=== PATIENT | female | born 1975 | race Caucasian/White ===

== ENCOUNTER 2019-03-19 19:17 | Emergency (ER) | payer SELFPAY ==
[2019-03-19] MEDS ORDERED: OXYCODONE-ACETAMINOPHEN 5-325 MG TABLET PO ONE (20:14)
--- NOTE | 2019-03-19 20:18 | ER Document Report ---
HPI - HPI Patient complains to provider of: Right ankle fracture Onset: Yesterday Onset/Duration: Sudden Quality of pain: Sharp Pain Level: 3 Context: Patient flew to [place] yesterday and was attempting to get her rental car and tripped falling fracturing her ankle. Patient was seen at a hospital in [place] and a posterior splint had been placed. Patient was advised that she would need surgery and patient made the decision to fly back as she lives in [place]. Patient flew back to [place] here today. Patient states that she has 3 fractures in her ankle. Patient denies any new injuries. Associated Symptoms: Other - Right ankle pain. denies: Vomiting Exacerbated by: Movement, Walking Relieved by: Denies Similar symptoms previously: No Recently seen / treated by doctor: Yes - ROS ROS below otherwise negative: Yes Systems Reviewed and Negative: Yes All other systems reviewed and negative - CONSTITUTIONAL Constitutional: DENIES: Fever - NEURO Neurology: DENIES: Weakness - GASTROINTESTINAL Gastrointestinal: DENIES: Nausea, Patient vomiting - REPRODUCTIVE Reproductive: DENIES: : - MUSCULOSKELETAL Musculoskeletal: REPORTS: Extremity pain, Swelling - DERM Skin Color: Ecchymosis Skin Problems: Blister <ENID SHI - Last Filed: 03/19/19 21:01> <MICHELE KATHLEEN - Last Filed: 03/19/19 21:49> - HPI Time Seen by Provider: 03/19/19 20:03 Past Medical History - General Information source: Patient - Social History Smoking Status: Never Smoker Frequency of alcohol use: Occasional Drug Abuse: None Occupation: None Family History: Reviewed & Not Pertinent - Medical History Medical History: Negative Surgical Hx: Negative <ENID SHI - Last Filed: 03/19/19 21:01> Vertical Provider Document - CONSTITUTIONAL Agree With Documented VS: Yes Exam Limitations: No Limitations General Appearance: WD/WN, No Apparent Distress - INFECTION CONTROL TRAVEL OUTSIDE OF THE [place]S. IN LAST 30 DAYS: No - HEENT HEENT: Atraumatic, Normocephalic - NECK Neck: Normal Inspection - RESPIRATORY Respiratory: No Respiratory Distress - CARDIOVASCULAR Pulses: Normal: Dorsalis pedis - MUSCULOSKELETAL/EXTREMETIES Musculoskeletal/Extremeties: Tender - Right foot and ankle tenderness with 3+ edema, patient with 2 large bulla to medial aspect of distal right lower leg and right foot, Edema, Eccymosis - NEURO Level of Consciousness: Awake, Alert, Appropriate Motor/Sensory: No Motor Deficit - DERM Integumentary: Warm, Dry <ENID SHI - Last Filed: 03/19/19 21:01> Course - Re-evaluation Re-evalutation: 03/19/19 20:[address] Venkata Vega regarding pt presentation, reviewed x rays. Patient appears to have by bimalleolar fracture on x-ray although the possibility of a trimalleolar fracture is in the differential. 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 It is recommended that patient will likely need surgical repair and we are approaching a holiday weekend with no orthopedic follow-up tomorrow either. Recommends transfer to another facility for definitive management. 03/19/19 20:55 Call placed to transfer center at [facility] 03/19/19 21:01 report and handoff given to Jaye RIVERA - Vital Signs Vital signs: Temp Pulse Resp BP Pulse Ox 98.6 F 88 20 124/79 96 03/19/19 19:22 03/19/19 19:22 03/19/19 19:22 03/19/19 19:22 03/19/19 19:22 - Diagnostic Test Radiology reviewed: Pending, Image reviewed <ENID SHI - Last Filed: 03/19/19 21:01> - Re-evaluation Re-evalutation: 03/19/19 21:45 Ankle XR: Comminuted mildly displaced fracture involving the distal fibula with additional transversely oriented fracture involving the medial malleolus I did speak with Dr. Solis, [facility], [place], who states that they will not perform surgery with fracture blisters present until they have resolved which may take a week. He would like a big bulky dressing provided with a posterior ankle as well as a stirrup splint. He would like Xeroform over the fracture blisters. She is to remain nonweightbearing and to call their office on Friday to schedule an appointment. Patient is in agreement with this plan. - Vital Signs Vital signs: Temp Pulse Resp BP Pulse Ox 98.6 F 88 20 124/79 96 03/19/19 19:22 03/19/19 19:22 03/19/19 19:22 03/19/19 19:22 03/19/19 19:22 <MICHELE KATHLEEN - Last Filed: 03/19/19 21:49> Procedures - Immobilization Right Ankle Pre-Proc Neuro Vasc Exam: Normal Immobilizer type: Sugar tong, Short Leg Posterior Performed by: PCT Post-Proc Neuro Vasc Exam: Normal, Unchanged from pre-exam <MICHELE KATHLEEN - Last Filed: 03/19/19 21:49> Discharge <ENID SHI - Last Filed: 03/19/19 21:01> <MICHELE KATHLEEN - Last Filed: 03/19/19 21:49> - Discharge Clinical Impression: Closed right ankle fracture Qualifiers: Encounter type: initial encounter Qualified Code(s): S82.891A - Other fracture of right lower leg, initial encounter for closed fracture Condition: Stable Disposition: HOME, SELF-CARE Additional Instructions: Rest, Ice, Compression, Elevation Use crutches/splint as directed Tylenol/ibuprofen as needed F/u with your PCP in 3-5 days for a recheck if needed Call orthopedics Friday to schedule an appointment for further evaluation and management Return to the ED with any worsening symptoms and/or development of fever, headache, chest pain, palpitations, syncope, shortness of breath, trouble breathing, abdominal pain, n/v/d, muscle weakness/paralysis, numbness/tingling, swelling, redness, or other worsening symptoms that are concerning to you. Prescriptions: Hydrocodone/Acetaminophen [[place] 5-325 mg Tablet] 1 tab PO BID PRN #10 tablet PRN Reason: Bismuth Tribromoph/Petrolatum [Xeroform 5"X9" Gauze Strip] 1 bandage TP ASDIR PRN #6 pkg PRN Reason: Referrals: GABRIELA SOLIS MD [NO LOCAL MD] - Follow up in 1 week
--- NOTE | 2019-03-19 21:19 | RADIOLOGY REPORT (SQ) ---
EXAM DESCRIPTION: Right foot RadLex: XR FOOT 3 OR MORE VIEWS Views: 3 CLINICAL HISTORY: 43 years Female, fall, r ankle/foot injury COMPARISON: None. FINDINGS: Fractures of the distal tibia and fibula are noted; see ankle report. Tarsals, metatarsals, and phalanges are intact. Small plantar and Achilles calcaneal spurs are noted. IMPRESSION: 1. Fractures of distal tibia and fibula; see ankle report 2. No foot fractures.
--- NOTE | 2019-03-19 21:23 | RADIOLOGY REPORT (SQ) ---
EXAM DESCRIPTION: XR ANKLE 3 OR MORE VIEWS COMPLETED DATE/TME: 03/19/2019 20:14 CLINICAL HISTORY: 43 years, Female, fall, r ankle/foot injury COMPARISON: None. NUMBER OF VIEWS: Three TECHNIQUE: Frontal, oblique, and lateral radiograph of the right ankle were obtained LIMITATIONS: None. FINDINGS: Visualized is a comminuted fracture involving the distal fibular diaphysis with slight posterior displacement of the distal fracture fragment. A superimposed transversely oriented fracture of the medial malleolus is also evident. Associated overlying soft tissue swelling is noted about the medial and lateral aspects of the ankle. Small posterior calcaneal spur is evident. A geographic appearing lucent lesion is noted about the anterior aspect of the calcaneus which demonstrates a narrow zone of transition, most likely benign. IMPRESSION: Comminuted, mildly displaced fracture involving the distal fibula. Additional transversely oriented fracture involving the medial malleolus. Geographic appearing lucent lesion within the anterior aspect of the calcaneus with narrow zone of transition, most likely benign. Consider follow-up radiographs in three months to document stability. copyright 2010 [employer]- All Rights Reserved
--- NOTE | 2019-03-19 21:25 | RADIOLOGY REPORT (SQ) ---
EXAM DESCRIPTION: XR RIGHT TIBIA FIBULA 2 VIEWS COMPLETED DATE/TME: 03/19/2019 20:26 CLINICAL HISTORY: 43 years, Female, RLE pain, ankle fx COMPARISON: None. NUMBER OF VIEWS: TECHNIQUE: LIMITATIONS: None. FINDINGS: There is comminuted fracture of the distal fibula. There is possible fracture of the posterior malleolus. Mineralization of bone appears normal. IMPRESSION: Fracture of the distal fibula. Possible fracture of the posterior malleolus. Ankle x-rays are pending. copyright 2010 [employer]- All Rights Reserved
[2019-03-19 23:00] VITALS: BP 104/55
== END 2019-03-19 22:59 | disposition home or self-care (01) ==
LOC: ER 19:17
DX: S82.891A Other fracture of right lower leg, initial encounter for closed fracture (principal); W01.0XXA Fall on same level from slipping, tripping and stumbling without subsequent striking against object, initial encounter
CPT/HCPCS: 99283

== ENCOUNTER 2020-02-09 10:42 | Emergency (ER) | payer SELFPAY ==
[2020-02-09] MEDS ORDERED: NORMAL SALINE 1000 ML 1,000 ML IV ONE (10:54)
--- NOTE | 2020-02-09 10:59 | ER Document Report ---
ED Medical Screen (RME) - General Chief Complaint: Abnormal Lab Results Stated Complaint: ABNORMAL LABS/URINARY PROBLEM Time Seen by Provider: 02/09/20 10:50 Mode of Arrival: Ambulatory Information source: Patient Notes: The patient was sent here from an urgent care after being rechecked after a yeast infection. Patient states that her blood sugar was elevated over 300 and she was told that she may be septic. Patient does complain of increased thirst, urination and polyphasia. Patient denies any history of diabetes. Patient complains only of yeast infection at this time. I have greeted and performed a rapid initial assessment of this patient. A comprehensive ED assessment and evaluation of the patient, analysis of test results and completion of the medical decision making process will be conducted by additional ED providers. TRAVEL OUTSIDE OF THE U.S. IN LAST 30 DAYS: No - Related Data Allergies/Adverse Reactions: Penicillins Allergy (Verified 02/09/20 10:50) Past Medical History - Social History Chew tobacco use (# tins/day): No Frequency of alcohol use: Occasional Drug Abuse: None Physical Exam - Vital signs Vitals: Temp Pulse Resp BP Pulse Ox 98.4 F 91 20 135/92 H 100 02/09/20 10:46 02/09/20 10:46 02/09/20 10:46 02/09/20 10:46 02/09/20 10:46 - General General appearance: Appears well, Alert In distress: None - Cardiovascular Rhythm: Regular Heart sounds: S1 appreciated, S2 appreciated Course - Vital Signs Vital signs: Temp Pulse Resp BP Pulse Ox 98.6 F 91 20 135/92 H 100 02/09/20 10:51 02/09/20 10:46 02/09/20 10:46 02/09/20 10:46 02/09/20 10:46
[2020-02-09 11:36] LABS: APPEARANCE,URINE CLEAR; BILIRUBIN,URINE NEGATIVE (NEGATIVE); COLOR,URINE YELLOW; GLUCOSE, URINE >=500 mg/dL (NEGATIVE); KETONES,URINE NEGATIVE (NEGATIVE); LEUKOCYTE ESTERASE,URINE NEGATIVE (NEGATIVE); NITRITE,URINE NEGATIVE (NEGATIVE); PROTEIN,URINE NEGATIVE (NEGATIVE); URINE SPECIFIC GRAVITY 1.033; UROBILINOGEN,URINE NEGATIVE mg/dL (<2.0)
[2020-02-09 11:38] LABS: ABSOLUTE BASOPHILS # (AUTO) 0.1 10^3/uL (0.0-0.2); ABSOLUTE EOSINOPHILS # (AUTO) 0.2 10^3/uL (0.0-0.6); ABSOLUTE LYMPHOCYTES (AUTO) 2.5 10^3/uL (0.5-4.7); ABSOLUTE MONOCYTES (AUTO) 0.5 10^3/uL (0.1-1.4); BASOPHILS % (AUTO) 0.6 % (0-2); EOSINOPHILS % (AUTO) 1.9 % (0-6); HEMATOCRIT 43.3 % (36.0-47.0); HEMOGLOBIN 14.6 g/dL (12.0-15.5); LYMPHOCYTES % (AUTO) 27.1 % (13-45); MEAN CORPUSCULAR HEMOGLOBIN 29.4 pg (27.0-33.4); MEAN CORPUSCULAR HGB CONC 33.8 g/dL (32.0-36.0); MEAN CORPUSCULAR VOLUME 87 fl (80-97); MONOCYTES % (AUTO) 5.9 % (3-13); PLATELET COUNT 278 10^3/uL (150-450); RED BLOOD COUNT 4.98 10^6/uL (3.72-5.28); RED CELL DISTRIBUTION WIDTH 13.4 % (11.5-14.0); SEGMENTED NEUTROPHILS % (AUTO) 64.5 % (42-78); TOTAL CELLS COUNTED % (AUTO) 100 %; WHITE BLOOD COUNT 9.4 10^3/uL (4.0-10.5)
[2020-02-09 11:55] LABS: ALBUMIN 4.1 g/dL (3.5-5.0); ALKALINE PHOSPHATASE 137 U/L (38-126); ANION GAP 7 (5-19); ASPARTATE AMINO TRANSFERASE 34 U/L (14-36); BILIRUBIN,TOTAL 0.4 mg/dL (0.2-1.3); BLOOD UREA NITROGEN 11 mg/dL (7-20); CALCIUM 9.3 mg/dL (8.4-10.2); CARBON DIOXIDE 31 mmol/L (22-30); CHLORIDE 96 mmol/L (98-107); GLUCOSE 324 mg/dL (75-110); POTASSIUM 4.3 mmol/L (3.6-5.0); TOTAL PROTEIN 7.4 g/dL (6.3-8.2)
--- NOTE | 2020-02-09 13:50 | ER Document Report ---
ED General - General Chief Complaint: Abnormal Lab Results Stated Complaint: ABNORMAL LABS/URINARY PROBLEM Time Seen by Provider: 02/09/20 10:50 Primary Care Provider: [facility] [Provider Group] - Follow up as needed [facility] [Provider Group] - Follow up as needed SCOTTIE RED MD [COMMUNITY BASED STAFF] - Follow up as needed Mode of Arrival: Ambulatory Information source: Patient Notes: Patient is a 44-year-old female presenting to the emergency department from the urgent care with concerns for elevated blood glucose. Patient denies any history of diabetes. She denies any known family history of diabetes. She states she has been dealing with a vaginal yeast infection for the last month which is why she went to the urgent care today. She states that they told her her glucose was elevated and they were concerned that she may be septic. Patient denies any fevers, chills, nausea, vomiting or diarrhea. She does report excessive thirst and excessive urination lately. TRAVEL OUTSIDE OF THE [place] IN LAST 30 DAYS: No - Related Data Allergies/Adverse Reactions: Penicillins Allergy (Verified 02/09/20 10:50) Past Medical History - General Information source: Patient - Social History Smoking Status: Former Smoker Chew tobacco use (# tins/day): No Frequency of alcohol use: Occasional Drug Abuse: None Family History: Reviewed & Not Pertinent Patient has homicidal ideation: No GI Medical History: Reports: Hx Gastroesophageal Reflux Disease Past Surgical History: Reports: Hx Orthopedic Surgery - Immunizations Immunizations up to date: Yes Review of Systems - Review of Systems Constitutional: Other - Excessive thirst Genitourinary: Frequency Female Genitourinary: Vaginal discharge - dx with yeast infection recently Physical Exam - Vital signs Vitals: Temp Pulse Resp BP Pulse Ox 98.4 F 91 20 135/92 H 100 02/09/20 10:46 02/09/20 10:46 02/09/20 10:46 02/09/20 10:46 02/09/20 10:46 - Notes Notes: PHYSICAL EXAMINATION: GENERAL: Well-appearing, well-nourished and in no acute distress. HEAD: Atraumatic, normocephalic. EYES: Pupils equal round and reactive to light, extraocular movements intact, conjunctiva are normal. ENT: Nares patent, oropharynx clear without exudates. Moist mucous membranes. NECK: Normal range of motion, supple without lymphadenopathy LUNGS: Breath sounds clear to auscultation bilaterally and equal. No wheezes rales or rhonchi. HEART: Regular rate and rhythm without murmurs ABDOMEN: Soft, nontender, nondistended abdomen. No guarding, no rebound. No masses appreciated. Female : deferred Musculoskeletal: Normal range of motion, no pitting or edema. No cyanosis. NEUROLOGICAL: Cranial nerves grossly intact. Normal speech, normal gait. Normal sensory, motor exams PSYCH: Normal mood, normal affect. SKIN: Warm, Dry, normal turgor, no rashes or lesions noted. Course - Re-evaluation Re-evalutation: 02/09/20 13:45 Laboratory 02/09/20 02/09/20 02/09/20 11:00 11:00 11:00 WBC 9.4 RBC 4.98 Hgb 14.6 Hct 43.3 MCV 87 MCH 29.4 MCHC 33.8 RDW 13.4 Plt Count 278 Lymph % (Auto) 27.1 [place] % (Auto) 5.9 Eos % (Auto) 1.9 Baso % (Auto) 0.6 Absolute Neuts (auto) 6.0 Absolute Lymphs (auto) 2.5 Absolute Monos (auto) 0.5 Absolute Eos (auto) 0.2 Absolute Basos (auto) 0.1 Seg Neutrophils % 64.5 Sodium 134.0 L Potassium 4.3 Chloride 96 L Carbon Dioxide 31 H Anion Gap 7 BUN 11 Creatinine 0.64 Est GFR ( Amer) > 60 Est GFR (MDRD) Non-Af > 60 Glucose 324 H POC Glucose Hemoglobin A1c % Calcium 9.3 Total Bilirubin 0.4 Direct Bilirubin 0.0 Neonat Total Bilirubin Not Reportable Neonat Direct Bilirubin Not Reportable Neonat Indirect Bili Not Reportable AST 34 ALT 41 H Alkaline Phosphatase 137 H Total Protein 7.4 Albumin 4.1 Serum HCG, Qual NEGATIVE Urine Color Urine Appearance Urine pH Ur Specific Mio Urine Protein Urine Glucose (UA) Urine Ketones Urine Blood Urine Nitrite Urine Bilirubin Urine Urobilinogen Ur Leukocyte Esterase Urine WBC (Auto) Urine RBC (Auto) Squamous Epi Cells Auto Urine Mucus (Auto) Urine Ascorbic Acid 02/09/20 02/09/20 02/09/20 11:00 11:00 11:01 WBC RBC Hgb Hct MCV MCH MCHC RDW Plt Count Lymph % (Auto) [place] % (Auto) Eos % (Auto) Baso % (Auto) Absolute Neuts (auto) Absolute Lymphs (auto) Absolute Monos (auto) Absolute Eos (auto) Absolute Basos (auto) Seg Neutrophils % Sodium Potassium Chloride Carbon Dioxide Anion Gap BUN Creatinine Est GFR ( Amer) Est GFR (MDRD) Non-Af Glucose POC Glucose 309 H Hemoglobin A1c % 9.2 H Calcium Total Bilirubin Direct Bilirubin Neonat Total Bilirubin Neonat Direct Bilirubin Neonat Indirect Bili AST ALT Alkaline Phosphatase Total Protein Albumin Serum HCG, Qual Urine Color YELLOW Urine Appearance CLEAR Urine pH 5.0 Ur Specific Mio 1.033 Urine Protein NEGATIVE Urine Glucose (UA) >=500 H Urine Ketones NEGATIVE Urine Blood SMALL H Urine Nitrite NEGATIVE Urine Bilirubin NEGATIVE Urine Urobilinogen NEGATIVE Ur Leukocyte Esterase NEGATIVE Urine WBC (Auto) 3 Urine RBC (Auto) 1 Squamous Epi Cells Auto 4 Urine Mucus (Auto) RARE Urine Ascorbic Acid NEGATIVE Patient appears well, nontoxic, vital signs reviewed and are within normal limits. Patient has a hemoglobin A1c of 9.2. Her [id number] glucose is 309. Patient has no history of diabetes. She is not in DKA. She feels well. She will be given a liter of fluids. She does not have a primary care provider establish so we will start her on metformin today. - Vital Signs Vital signs: Temp Pulse Resp BP Pulse Ox 98.5 F 80 20 123/91 H 98 02/09/20 15:54 02/09/20 15:54 02/09/20 15:54 02/09/20 15:54 02/09/20 15:54 - Laboratory Result Diagrams: 02/09/20 11:00 02/09/20 11:00 Laboratory results interpreted by me: 02/09/20 02/09/20 02/09/20 11:00 11:00 11:00 Sodium 134.0 L Chloride 96 L Carbon Dioxide 31 H Glucose 324 H POC Glucose Hemoglobin A1c % 9.2 H ALT 41 H Alkaline Phosphatase 137 H Urine Glucose (UA) >=500 H Urine Blood SMALL H 02/09/20 11:01 Sodium Chloride Carbon Dioxide Glucose POC Glucose 309 H Hemoglobin A1c % ALT Alkaline Phosphatase Urine Glucose (UA) Urine Blood Discharge - Discharge Clinical Impression: New onset type 2 diabetes mellitus Condition: Stable Disposition: HOME, SELF-CARE Additional Instructions: Diabetes You have an abnormally high blood sugar, suspicious for diabetes. Not all high blood sugar requires long-term treatment. High blood sugar can be due to medications, , or the stress of illness. (These cases are "borderline diabetes.") If the doctor feels your high blood sugar might get better with time, you may not require treatment now. You will be scheduled for further evaluation. It's very important that you follow through. Uncontrolled high blood sugar leads to early heart disease, strokes, nerve damage, eye damage, and kidney damage. All diabetics should follow a diet designed to control the blood sugar. Overweight diabetics should exercise regularly and lose weight. If this is not sufficient to control the blood sugar, pills or insulin shots are necessary. Younger people who develop diabetes almost always require insulin daily. Home testing of blood sugars or urine sugar is required. Diabetic teaching is available to help you figure insulin doses and monitor the blood sugar. Call the physician if there is faintness, excess sleepiness, or very rapid breathing. If hypoglycemia (LOW blood sugar) develops, symptoms are shakiness, weakness, sweating, and confusion. In this case, you should eat or drink something with sugar at once. Please take medication as prescribed. Try to eat a low sugar, low carb diet. It is very important that you establish care with your primary care provider. I have given you a list of several to choose from. Return to the emergency department any new or worsening symptoms. Prescriptions: Fluconazole [Diflucan] 150 mg PO ONCE PRN #2 tablet PRN Reason: Metformin HCl [Glucophage 500 mg Tablet] 500 mg PO BID #60 tablet Referrals: [facility] [Provider Group] - Follow up as needed [facility] [Provider Group] - Follow up as needed SCOTTIE RED MD [COMMUNITY BASED STAFF] - Follow up as needed
[2020-02-09 15:58] VITALS: BP 123/91
== END 2020-02-09 15:58 | disposition home or self-care (01) ==
LOC: ER 10:42
DX: E11.65 Type 2 diabetes mellitus with hyperglycemia (principal); R39.198 Other difficulties with micturition; R35.0 Frequency of micturition; R63.1 Polydipsia; Z87.891 Personal history of nicotine dependence
CPT/HCPCS: 99283; 96360; 36415; 82962; 84703; 85025; 80053; 81001; 83036; J7030